=== PATIENT | female | born 1960 | race American Indian/Alaskan Native ===

== ENCOUNTER 2018-09-26 21:18 | Emergency (ER) | payer OTHER ==
--- NOTE | 2018-09-26 21:28 | Emergency Department Report ---
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 Due to findings the following was ordered: xr left hand ED Disposition for MSE Condition: Stable
--- NOTE | 2018-09-26 22:20 | XRay Report ---
PROCEDURE: XR HAND 3+V LT TECHNIQUE: PROCEDURE: LEFT HAND, 3 VIEWS TECHNIQUE: LEFT hand radiographs, AP, lateral, and oblique views. CPT 03784 HISTORY: left thumb pain/injury COMPARISONS: None . FINDINGS: Fracture (s) and/or Dislocation(s): None . Alignment: Normal . Joint space(s): Normal . Soft tissues: Normal . Bone mineralization: Normal . Foreign bodies: None . IMPRESSION: Normal Examination . This document is electronically signed by Girish Barnes MD., September 26 2018 10:18:41 PM ET
[2018-09-27] MEDS ORDERED: NORCO 5/325 PO STA (00:01)
--- NOTE | 2018-09-27 00:43 | Emergency Department Report ---
Upper Extremity - HPI Chief Complaint: Extremity Injury, Upper Stated Complaint: LEFT HAND INJURY Time Seen by Provider: 09/26/18 21:24 Upper Extremity: Left Hand Occurred When: Today Mechanism: Other (a 58-year-old female was trying to retrieve a debit card that belonged to her grandson that was on the couch and while doing so, rubs the top of her hand against the bottom of the couch, which was was within resulting in a dull throbbing pain and bruising to the top of her hand. She states that she jerked her hand out of the couch very quickly, which cause her thumb to her, but she is unsure as to what happened. She denies any direct trauma to her. The pain is now a dull and throbbing, and she is getting occasional tingling that radiates up the medial aspect of her left hand and forearm.) ED Review of Systems ROS: Stated complaint: LEFT HAND INJURY Other details as noted in HPI Constitutional: denies: chills, fever Eyes: denies: eye pain, eye discharge, vision change ENT: denies: ear pain, throat pain Respiratory: denies: cough, shortness of breath, wheezing Cardiovascular: denies: chest pain, palpitations Endocrine: no symptoms reported Gastrointestinal: denies: abdominal pain, nausea, diarrhea Genitourinary: denies: urgency, dysuria, discharge Musculoskeletal: denies: back pain, joint swelling, arthralgia Skin: denies: rash, lesions Neurological: denies: headache, weakness, paresthesias Psychiatric: denies: anxiety, depression Hematological/Lymphatic: denies: easy bleeding, easy bruising ED Past Medical Hx - Past Medical History Previous Medical History?: Yes Hx COPD: Yes Hx Tuberculosis: Yes Additional medical history: seasonal allergies, hepatitis B in 87 - Surgical History Past Surgical History?: Yes Additional Surgical History: hysterectomy, c-sec - Social History Smoking Status: Current Every Day Smoker Substance Use Type: None - Medications Home Medications: Home Medications Medication Instructions Recorded Confirmed Last Taken Type traMADol [Ultram] 50 mg PO Q6HR PRN #14 tablet 09/27/18 Unknown Rx Upper Extremity Exam - Exam General: Vital signs noted. No distress. Alert and acting appropriately. Head and Torso: No HEENT Abnormality, No Neck Tenderness, No Chest/Lungs Abnormality, No Abdominal Tenderness, No Back Tenderness Shoulder Exam: Yes Normal Range of Motion in Shoulder, No Shoulder Tenderness, No Clavicle Tenderness, No Shoulder Deformity, No AC Joint Tenderness Arm Exam: No Arm/Humerus Tenderness, No Arm Deformity Elbow: No Elbow Tenderness, No Normal Range of Motion in Elbow, No Elbow Deformity Forearm: No Forearm Tenderness, No Forearm Deformity, No Pain with Pronation, No Pain with Supination Wrist: Yes Normal ROM in Wrist, No Wrist Tenderness, No Wrist Deformity, No Snuffbox Tenderness, No Pain with Axial Thumb Compression Hand: Yes Hand Tenderness, Yes Normal ROM in Digit(s), No Hand Deformity, No Digit Tenderness, No Digit(s) Deformity, No Tendon Dysfunction CMS Exam: No Broken Skin, No Normal Distal Pulses, No Normal Capillary Refill, No Normal Distal Sensation Hand L/R Back: 1 - Area of bruising and tenderness with palpation. ED Course Vital Signs 09/26/18 21:26 Temperature 98.1 F Pulse Rate 65 Respiratory 18 Rate Blood Pressure 110/60 O2 Sat by Pulse 96 Oximetry ED Medical Decision Making - Medical Decision Making 8-year-old female with a couch versus hand injury was within normal x-rays and bruising to the top of her hand a long discussion with her about the natural progression of a bruise and the appropriate treatment course with icing and anti-inflammatory. Ms. Whyte was adamant that she does not want any anti- inflammatory scrotal home. She only wanted very strong narcotic to help her pain. She states it was hurting her and she wanted to make sure that the pain was 100% gone. I discussed with her about realistic goals for pain management and the appropriate of pain management therapy for this injury Critical care attestation.: If time is entered above; I have spent that time in minutes in the direct care of this critically ill patient, excluding procedure time. ED Disposition Clinical Impression: Contusion of left hand Disposition: - TO HOME OR SELFCARE Is pt being admited?: No Does the pt Need Aspirin: No Condition: Stable Instructions: Contusion in Adults (ED) Prescriptions: traMADol [Ultram] 50 mg PO Q6HR PRN #14 tablet PRN Reason: Pain Referrals: MARIELLA DUBOIS MD [Primary Care Provider] - 3-5 Days
[2018-09-27 01:20] VITALS: BP 108/63
== END 2018-09-27 01:18 | disposition home or self-care (01) ==
LOC: ED 21:18
DX: S60.222A Contusion of left hand, initial encounter (principal); J44.9 Chronic obstructive pulmonary disease, unspecified; F17.200 Nicotine dependence, unspecified, uncomplicated; Z86.19 Personal history of other infectious and parasitic diseases; Z90.710 Acquired absence of both cervix and uterus; W22.8XXA Striking against or struck by other objects, initial encounter; Y93.89 Activity, other specified; Y92.89 Other specified places as the place of occurrence of the external cause; Y99.8 Other external cause status
CPT/HCPCS: 99283

== ENCOUNTER 2019-03-16 18:44 | Emergency (ER) | payer SELFPAY ==
--- NOTE | 2019-03-16 19:00 | Event Note ---
ED Screening Note ED Screening Note: Pt presents with SOB that began this morning +cough with mucus production chest tightness +rhinorrhea no fever PMHx of COPD/emphysema pt is still smoking, 1/2 pack every two days no allergies to meds This initial assessment/diagnostic orders/clinical plan/treatment(s) is/are subject to change based on patients health status, clinical progression and re- assessment by fellow clinical providers in the ED. Further treatment and workup at subsequent clinical providers discretion. Patient/guardian urged not to elope from the ED as their condition may be serious if not clinically assessed and managed. Initial orders include: labs, CXR, EKG
--- NOTE | 2019-03-16 19:27 | XRay Report ---
CHEST 2 VIEWS INDICATION: SOB, cough. COMPARISON: None FINDINGS: Support devices: None. Heart: Within normal limits. Lungs/pleura: COPD changes in the lungs with calcified nodule in the right lung base measuring 2 cm l ikely representing a granuloma. Otherwise clear lungs. No pneumothorax. Additional findings: None. IMPRESSION: 1. No acute findings. Signer Name: Jamil Rosenbaum MD Signed: 03/16/2019 7:23 PM Workstation Name: [id number]
[2019-03-16 19:42] LABS: Basophils % (Auto) 0.8 % (0.0-1.8); Eosinophils # (Auto) 0.1 K/mm3 (0.0-0.4); Eosinophils % (Auto) 0.9 % (0.0-4.3); Hematocrit 41.7 % (30.3-42.9); Hemoglobin 14.2 gm/dl (10.1-14.3); Lymphocytes # (Auto) 2.3 K/mm3 (1.2-5.4); Lymphocytes % (Auto) 38.5 % (13.4-35.0); Mean Corpuscular HGB Conc 34 % (30-34); Mean Corpuscular Volume 93 fl (79-97); Monocytes # (Auto) 0.4 K/mm3 (0.0-0.8); Monocytes % (Auto) 7.3 % (0.0-7.3); Platelet Count 197 K/mm3 (140-440); Red Blood Count 4.47 M/mm3 (3.65-5.03); Red Cell Distribution Width 13.1 % (13.2-15.2)
[2019-03-16 20:05] LABS: BUN/Creatinine Ratio 8; Blood Urea Nitrogen 6 mg/dL (7-17); Calcium 9.3 mg/dL (8.4-10.2); Hemolysis Index 1
[2019-03-16] MEDS ORDERED: PROVENTIL IH ONE (22:07)
[2019-03-16] MEDS ORDERED: DUONEB *Not for PRN Use IH ONE (22:09)
[2019-03-16] MEDS ORDERED: DECADRON IM ONE (22:09)
--- NOTE | 2019-03-16 23:27 | Emergency Department Report ---
ED Shortness of Breath HPI - General Chief Complaint: Dyspnea/Respdistress Stated Complaint: ZEHRA/SHAKING Time Seen by Provider: 03/16/19 18:58 Source: patient Mode of arrival: Ambulatory Limitations: No Limitations - History of Present Illness Initial Comments: This is a 58-year-old female nontoxic, well nourished in appearance, no acute signs of distress presents to the ED with c/o of shortness of breath. Patient stated this morning she woke up feeling this. Patient has history of COPD and emphysema and symptoms are similar. Patient denies any chest pain, headache, stiff neck, no numbness, tingling, bowel pain, back pain. Patient denies any a llergies. Patient denies any recent travel or long car ride. MD Complaint: shortness of breath -: This morning Pain Scale: 0 Improves With: nothing Worsens With: nothing Known History Of: COPD, other (emphysema) Associated Symptoms: denies other symptoms Treatments Prior to Arrival: none - Related Data Previous Rx's Medication Instructions Recorded Last Taken Type traMADol [Ultram] 50 mg PO Q6HR PRN #14 tablet 09/27/18 Unknown Rx ALBUTEROL Inhaler (OR & NICU) 2 puff IH QID PRN #1 inhalation 03/16/19 Unknown Rx [ProAir HFA Inhaler] Prednisone [predniSONE 10 mg 10 mg PO .TAPER #1 tab.ds.pk 03/16/19 Unknown Rx (6-Day Pack, 21 Tabs)] Allergies Allergy/AdvReac Type Severity Reaction Status Date / Time No Known Allergies Allergy Verified 03/16/19 18:45 ED Review of Systems ROS: Stated complaint: ZEHRA/SHAKING Other details as noted in HPI Constitutional: denies: chills, fever Eyes: denies: eye pain, eye discharge, vision change ENT: denies: ear pain, throat pain Respiratory: shortness of breath, wheezing. denies: cough Cardiovascular: denies: chest pain, palpitations Endocrine: no symptoms reported Gastrointestinal: denies: abdominal pain, nausea, diarrhea Genitourinary: denies: urgency, dysuria, discharge Musculoskeletal: denies: back pain, joint swelling, arthralgia Skin: denies: rash, lesions Neurological: denies: headache, weakness, paresthesias Psychiatric: denies: anxiety, depression Hematological/Lymphatic: denies: easy bleeding, easy bruising ED Past Medical Hx - Past Medical History Hx COPD: Yes Hx Tuberculosis: Yes Additional medical history: seasonal allergies, hepatitis B in 87 - Surgical History Additional Surgical History: hysterectomy, c-sec - Social History Smoking Status: Current Every Day Smoker Substance Use Type: None - Medications Home Medications: Home Medications Medication Instructions Recorded Confirmed Last Taken Type traMADol [Ultram] 50 mg PO Q6HR PRN #14 tablet 09/27/18 Unknown Rx ALBUTEROL Inhaler (OR & NICU) 2 puff IH QID PRN #1 inhalation 03/16/19 Unknown Rx [ProAir HFA Inhaler] Prednisone [predniSONE 10 mg 10 mg PO .TAPER #1 tab.ds.pk 03/16/19 Unknown Rx (6-Day Pack, 21 Tabs)] ED Physical Exam - General Limitations: No Limitations General appearance: alert, in no apparent distress - Head Head exam: Present: atraumatic, normocephalic - Neck Neck exam: Present: normal inspection, full ROM. Absent: tenderness, meningismus, lymphadenopathy - Respiratory Respiratory exam: Present: normal lung sounds bilaterally, wheezes (upper and lower lobes). Absent: respiratory distress, rales, rhonchi, stridor, chest wall tenderness, accessory muscle use, decreased breath sounds, prolonged expiratory - Cardiovascular Cardiovascular Exam: Present: regular rate, normal rhythm, normal heart sounds. Absent: bradycardia, tachycardia, irregular rhythm, systolic murmur, diastolic murmur, rubs, gallop - Extremities Exam Extremities exam: Present: normal inspection, full ROM - Back Exam Back exam: Present: normal inspection, full ROM - Neurological Exam Neurological exam: Present: alert, oriented X3, normal gait - Psychiatric Psychiatric exam: Present: normal affect, normal mood - Skin Skin exam: Present: warm, dry, intact, normal color. Absent: rash ED Course Vital Signs 03/16/19 18:58 Temperature 97.9 F Pulse Rate 70 Respiratory 18 Rate Blood Pressure 120/68 O2 Sat by Pulse 97 Oximetry - Reevaluation(s) Reevaluation #1: 03/16/19 23:25 Patient is speaking in full sentences with no signs of distress noted. ED Medical Decision Making - Lab Data Result diagrams: 03/16/19 19:22 03/16/19 19:22 - Medical Decision Making This is a 58-year-old female that presents with SOB. Patient is stable and was examined by me. Labs unremarkable. EKG with no acute changes. Chest x-ray has been obtained and dictated by the radiologist within normal limits. Patient is notified of the x-ray report with no questions noted by the patient. Patient did receive DuoNeb and steroids in the ED which patient the symptoms has res olved and subsided. Posttreatment and there is no wheezing upon auscultation. Patient is discharged with albuterol and prednisone. Patient was referred to Follow-up with a primary care doctor in 3-5 days or if symptoms worsen and continue return to emergency room as soon as possible. At time of discharge, the patient does not seem toxic or ill in appearance. No acute signs of distress noted. Patient agrees to discharge treatment plan of care. No further questions noted by the patient. This chart is dictated with using [employer] Dictation Program Critical care attestation.: If time is entered above; I have spent that time in minutes in the direct care of this critically ill patient, excluding procedure time. ED Disposition Clinical Impression: Shortness of breath Disposition: DC-01 TO HOME OR SELFCARE Is pt being admited?: No Does the pt Need Aspirin: No Condition: Stable Instructions: Dyspnea (ED) Additional Instructions: Follow-up with a primary care doctor in 3-5 days or if symptoms worsen and continue return to emergency room as soon as possible. Prescriptions: Prednisone [predniSONE 10 mg (6-Day Pack, 21 Tabs)] 10 mg PO .TAPER #1 tab.ds.pk ALBUTEROL Inhaler (OR & NICU) [ProAir HFA Inhaler] 2 puff IH QID PRN #1 inhala tion PRN Reason: Shortness Of Breath [facility] - 3-5 Days PRIMARY MD EARNESTINE [Referring] - 3-5 Days RADHA SOLANO MD [Staff Physician] - 3-5 Days [facility] [Outside] - 3-5 Days [facility] [Outside] - 3-5 Days
[2019-03-16 23:35] VITALS: BP 110/57
== END 2019-03-16 23:34 | disposition home or self-care (01) ==
LOC: ED 18:44
DX: R06.02 Shortness of breath (principal); J44.9 Chronic obstructive pulmonary disease, unspecified; B19.10 Unspecified viral hepatitis B without hepatic coma; F17.200 Nicotine dependence, unspecified, uncomplicated; Z90.710 Acquired absence of both cervix and uterus; Z86.11 Personal history of tuberculosis; Z79.899 Other long term (current) drug therapy
CPT/HCPCS: 36415; 71046; 80048; 83880; 84484; 85025; 93005; 93010; 96372; 99284; J1100

== ENCOUNTER 2019-04-22 19:22 | Emergency (ER) | payer SELFPAY ==
--- NOTE | 2019-04-22 20:06 | Event Note ---
ED Screening Note Date of service: 04/22/19 Time: 20:03 ED Screening Note: This is a 58 y.o. F. that presents to the ER with productive cough and chest pain x 2 weeks. PMH of emphysema and COPD Recently recovered from URI. Current smoker This initial assessment/diagnostic orders/clinical plan/treatment(s) is/are subject to change based on patients health status, clinical progression and re- assessment by fellow clinical providers in the ED. Further treatment and workup at subsequent clinical providers discretion. Patient/guardian urged not to elope from the ED as their condition may be serious if not clinically assessed and managed. Initial orders include: CXR
--- NOTE | 2019-04-22 21:34 | XRay Report ---
CHEST 2 VIEWS INDICATION / CLINICAL INFORMATION: Cough and chest discomfort. Cold symptoms for 2 weeks with bronchitis. COMPARISON: 03/16/2019. FINDINGS: SUPPORT DEVICES: None. HEART / MEDIASTINUM: The heart size and pulmonary vasculature are normal. LUNGS / PLEURA: The lungs are hyperinflated. There is a 2 cm ovoid nodular opacity in the right lower lung which has not changed in size. The lesion is probably calcified, but I cannot be certain. No pn eumothorax. ADDITIONAL FINDINGS: No significant additional findings. IMPRESSION: 1. Emphysema without acute abnormality. 2. 2 cm nodular opacity in the right lower lung may represent a calcified granuloma, however I cannot be certain. CT of the chest may be helpful in further characterization. Signer Name: aPwan Donis MD Signed: 04/22/2019 9:29 PM Workstation Name: [id number]
--- NOTE | 2019-04-22 22:09 | Emergency Department Report ---
Minor Respiratory - HPI Chief Complaint: Upper Respiratory Infection Stated Complaint: BRONCITIS Time Seen by Provider: 04/22/19 20:03 Duration: 3 Days Minor Respiratory: Yes Able to Tolerate Fluids, Yes Cough, Yes Chest Pain, Yes Fever, No Rhinorrhea, No Sore Throat, No Ear Pain, No Sick Contacts, No Hemoptysis, No Shortness of Breath Other History: 58-year-old female presents to the emergency room for cough she's had 2-3 days. Patient reports she has chest pain with cough. She reports she has COPD and emphysema and uses Symbicort. Patient admits that she is still smoking cigarettes. Patient reports she's taken NyQuil. Patient reports that she's had no fevers no change in sputum color. Patient does admit to have been a cold a few weeks ago. ED Review of Systems ROS: Stated complaint: BRONCITIS Other details as noted in HPI ED Past Medical Hx - Past Medical History Previous Medical History?: Yes Hx COPD: Yes Hx Tuberculosis: Yes Additional medical history: seasonal allergies, hepatitis B in 87 - Surgical History Past Surgical History?: Yes Additional Surgical History: hysterectomy, c-sec - Social History Smoking Status: Current Every Day Smoker Substance Use Type: None - Medications Home Medications: Home Medications Medication Instructions Recorded Confirmed Last Taken Type traMADol [Ultram] 50 mg PO Q6HR PRN #14 tablet 09/27/18 Unknown Rx ALBUTEROL Inhaler (OR & NICU) 2 puff IH QID PRN #1 inhalation 04/22/19 Unknown Rx [ProAir HFA Inhaler] Prednisone [predniSONE 10 mg 10 mg PO .TAPER #1 tab.ds.pk 04/22/19 Unknown Rx (6-Day Pack, 21 Tabs)] Minor Respiratory Exam - Exam General: Vital signs noted. No distress. Alert and acting appropriately. HEENT: Yes Moist Mucous Membranes, No Pharyngeal Erythema, No Pharyngeal Exudates, No Rhinorrhea, No Conjuctival Injection, No Frontal Tenderness, No Maxillary Tenderness Ear: Neither TM Bulge, Neither TM Erythema, Neither EAC Pain, Neither EAC Discharge Neck: Yes Supple, No Adenopathy Lungs: Yes Good Air Exchange, No Wheezes, No Ronchi, No Stridor, No Cough, No Labored Respirations, No Retractions, No Use of Accessory Muscles, No Other Abnormal Lung Sounds Heart: Yes Regular, No Murmur Abdomen: Yes Normal Bowel Sounds, No Tenderness, No Peritoneal Signs Skin: No Rash, No Edema Neurologic: Alert and oriented, no deficits. Musculoskeletal: Unremarkable. ED Course Vital Signs 04/22/19 19:29 Temperature 98.1 F Pulse Rate 70 Respiratory 16 Rate Blood Pressure 107/66 O2 Sat by Pulse 94 Oximetry ED Medical Decision Making - Radiology Data Radiology results: report reviewed Patient: MIRIAM BRIGGS MR#: [id number] : 1960 Acct:[id number] Age/Sex: 58 / F ADM Date: 04/22/19 Loc: ED Attending Dr: Ordering Physician: RODRIGUE DUNN Date of Service: 04/22/19 Procedure(s): XR chest routine 2V Accession Number(s): [id number] cc: RODRIGUE DUNN Fluoro Time In Minutes: CHEST 2 VIEWS INDICATION / CLINICAL INFORMATION: Cough and chest discomfort. Cold symptoms for 2 weeks with bronchitis. COMPARISON: 03/16/2019. FINDINGS: SUPPORT DEVICES: None. HEART / MEDIASTINUM: The heart size and pulmonary vasculature are normal. LUNGS / PLEURA: The lungs are hyperinflated. There is a 2 cm ovoid nodular opacity in the right lower lung which has not changed in size. The lesion is probably calcified, but I cannot be certain. No pneumothorax. ADDITIONAL FINDINGS: No significant additional findings. IMPRESSION: 1. Emphysema without acute abnormality. 2. 2 cm nodular opacity in the right lower lung may represent a calcified granuloma, however I cannot be certain. CT of the chest may be helpful in further characterization. Signer Name: Pawan Donis MD Signed: 04/22/2019 9:29 PM Workstation Name: [id number] Transcribed By: RT Dictated By: Pawan Donis MD Electronically Authenticated By: Pawan Donis MD Signed Date/Time: 04/22/192128 DD/ 26 TD/TT: - Medical Decision Making 58-year-old female presents to the emergency room for cough she's had 2-3 days. Patient reports she has chest pain with cough. She reports she has COPD and emphysema and uses Symbicort. Patient admits that she is still smoking cigarettes. Patient reports she's taken NyQuil. Patient reports that she's had no fevers no change in sputum color. Patient does admit to have been a cold a few weeks ago. Chest x-ray shows emphysema no acute abnormalities. Right lower lung nodule 2 cm. Patient be given a prescription for albuterol and prednisone and referred to critical care transport nurse. Critical care attestation.: If time is entered above; I have spent that time in minutes in the direct care of this critically ill patient, excluding procedure time. ED Disposition Clinical Impression: Chronic cough, Nodule of lower lobe of right lung Emphysema of lung Qualifiers: Emphysema type: unspecified Qualified Code(s): J43.9 - Emphysema, unspecified Disposition: TO HOME OR SELFCARE Is pt being admited?: No Does the pt Need Aspirin: No Condition: Stable Instructions: Chronic Obstructive Pulmonary Disease (ED) Prescriptions: Prednisone [predniSONE 10 mg (6-Day Pack, 21 Tabs)] 10 mg PO .TAPER #1 tab.ds.pk ALBUTEROL Inhaler (OR & NICU) [ProAir HFA Inhaler] 2 puff IH QID PRN #1 inhalation PRN Reason: Shortness Of Breath Referrals: MEGAN DE LA O MD [Staff Physician] - 3-5 Days [facility] [Outside] - 3-5 Days
[2019-04-22 22:34] VITALS: BP 145/98
== END 2019-04-22 22:33 | disposition home or self-care (01) ==
LOC: ED 19:22
DX: J43.9 Emphysema, unspecified (principal); R91.1 Solitary pulmonary nodule; F17.200 Nicotine dependence, unspecified, uncomplicated; Z98.890 Other specified postprocedural states
CPT/HCPCS: 71046

== ENCOUNTER 2020-10-31 16:40 | Emergency (ER) | payer SELFPAY ==
[2020-10-31] MEDS ORDERED: IPRATROPIUM 0.02% NEBU 2.5 ML IH ONE ×2 (18:37→23:32)
[2020-10-31] MEDS ORDERED: ALBUTEROL 2.5 MG/3 ML NEBU IH ONE ×2 (18:37→23:31)
[2020-10-31] MEDS ORDERED: methylPREDNISolone Sod Succinate 125 MG/2 ML INJ IV ONE (18:38)
--- NOTE | 2020-10-31 18:40 | Event Note ---
ED Screening Note Date of service: 10/31/20 Time: 18:39 ED Screening Note: 60-year-old female patient with history of COPD and tobacco use presents to the emergency department with complaints of chest tightness, productive cough, wheezing, and shortness of breath for 8 days. States she is not currently on steroids or antibiotics. States she has never required hospitalization for her COPD. No known sick contacts. No recent travel. General: Awake, appropriately interactive, no acute distress. Neck: Supple. Full range of motion intact. Cardiovascular: Normal peripheral perfusion. Pulmonary: Diffuse inspiratory/expiratory wheezing bilaterally with scattered rhonchi throughout. No respiratory distress. Patient is speaking normally without use of accessory muscles. Skin: No apparent rashes or lesions. Neurological: No facial asymmetry. Speech is clear. Follows commands. Patient is alert and oriented. Musculoskeletal: Moves all four extremities spontaneously with normal range of motion. Psych: Cooperative. Appropriate mood and affect. I have greeted and performed a focused rapid initial assessment of this patient. A comprehensive ED assessment and evaluation of the patient, analysis of all test results, and completion of the medical decision-making process will be cond ucted by additional ED providers. This initial assessment/diagnostic orders/clinical plan/treatment(s) is/are subject to change based on patients health status, clinical progression and re-assessment. Further treatment and workup at subsequent clinical provider's discretion. Patient/guardian urged not to elope from the ED as their condition may be serious if not clinically assessed and managed.
--- NOTE | 2020-10-31 19:14 | XRay Report ---
CHEST 2 VIEWS INDICATION / CLINICAL INFORMATION: MAIN. Cough and shortness of breath COMPARISON: 04/22/2019 FINDINGS: SUPPORT DEVICES: None. HEART / MEDIASTINUM: No significant abnormality. LUNGS / PLEURA: Moderate COPD. No significant pulmonary or pleural abnormality. No pneumothorax. ADDITIONAL FINDINGS: No significant additional findings. IMPRESSION: 1. No acute findings. Signer Name: Jefry Marcos MD Signed: 10/31/2020 7:09 PM Workstation Name: [id number]
[2020-11-01] MEDS ORDERED: IPRATROPIUM 0.02% NEBU 2.5 ML IH ONE (01:33)
[2020-11-01] MEDS ORDERED: ALBUTEROL 2.5 MG/3 ML NEBU IH ONE (01:33)
[2020-11-01] MEDS ORDERED: methylPREDNISolone Sod Succinate 125 MG/2 ML INJ IM ONE (01:33)
[2020-11-01] MEDS ORDERED: KETOROLAC 60 MG/2 ML INJ IM ONE (01:34)
--- NOTE | 2020-11-01 01:38 | Emergency Department Report ---
HPI - General Chief Complaint: Dyspnea/Respdistress Time Seen by Provider: 11/01/20 01:26 - HPI HPI: Room 2 The patient is a 60-year-old female present with a chief complaint of "bronchitis." The patient states for the past 8 days she has had a cough p roductive of white sputum. Patient states her treatment coughing has caused soreness in her chest. Patient admits to shortness of breath denies history of fever. Patient denies known contact with Covid positive patients. ED Past Medical Hx - Past Medical History Hx COPD: Yes (No home O2) Hx Tuberculosis: Yes Additional medical history: seasonal allergies, hepatitis B in 87 - Surgical History Additional Surgical History: hysterectomy, c-sec - Family History Family history: no significant - Social History Smoking Status: Current Every Day Smoker (1/2 pack/day) Substance Use Type: None (Denies illicit drug) - Medications Home Medications: Home Medications Medication Instructions Recorded Confirmed Last Taken Type traMADoL [Ultram] 50 mg PO Q6HR PRN #14 tablet 09/27/18 Unknown Rx Albuterol Mdi (or & Nicu Only) 2 puff IH QID PRN #1 inhalation 04/22/19 Unknown Rx [ProAir HFA Inhaler] Prednisone [predniSONE 10 mg 10 mg PO .TAPER #1 tab.ds.pk 04/22/19 Unknown Rx (6-Day Pack, 21 Tabs)] Albuterol Mdi (or & Nicu Only) 2 puff IH QID PRN #8.5 gram 11/01/20 Unknown Rx [ProAir HFA Inhaler] Azithromycin [Zithromax Z-LANDON] 0 mg PO DAILY #6 tab 11/01/20 Unknown Rx Cyclobenzaprine [Flexeril] 10 mg PO TID PRN #10 tablet 11/01/20 Unknown Rx Ibuprofen [Motrin 800 MG tab] 800 mg PO Q8HR PRN #20 tablet 11/01/20 Unknown Rx Prednisone [predniSONE 10 mg 10 mg PO .TAPER #1 tab.ds.pk 11/01/20 Unknown Rx (6-Day Pack, 21 Tabs)] ED Review of Systems ROS: Stated complaint: ZEHRA, CHEST PAIN, SORE THROAT Other details as noted in HPI Constitutional: denies: fever Eyes: denies: eye pain ENT: denies: throat pain Respiratory: cough, shortness of breath Endocrine: no symptoms reported Gastrointestinal: denies: abdominal pain Genitourinary: denies: dysuria Musculoskeletal: myalgia Neurological: denies: headache Physical Exam - Physical Exam Vital Signs: Vital Signs 10/31/20 10/31/20 18:30 23:42 Temperature 98.1 F Pulse Rate 70 Pulse Rate [ 88 Bilateral] Respiratory 20 Rate Respiratory 22 Rate [Bilateral ] Blood Pressure 109/76 O2 Sat by Pulse 96 Oximetry Physical Exam: GENERAL: The patient is well-developed well-nourished female lying on stretcher not appearing to be in acute distress. [] HEENT: Normocephalic. Atraumatic. Extraocular motions are intact. Patient has moist mucous membranes. NECK: Supple. Trachea midline CHEST/LUNGS: Wheezing and occasional rhonchi. There is no respiratory distress noted. HEART/CARDIOVASCULAR: Regular. There is no tachycardia. There is no gallop rub or murmur. ABDOMEN: Abdomen is soft, nontender. Patient has normal bowel sounds. There is no abdominal distention. SKIN: There is no rash. There is no edema. There is no diaphoresis. NEURO: The patient is awake, alert, and oriented. The patient is cooperative. The patient has no focal neurologic deficits. The patient has normal speech MUSCULOSKELETAL: There is no evidence of acute injury. ED Course Vital Signs 10/31/20 10/31/20 18:30 23:42 Temperature 98.1 F Pulse Rate 70 Pulse Rate [ 88 Bilateral] Respiratory 20 Rate Respiratory 22 Rate [Bilateral ] Blood Pressure 109/76 O2 Sat by Pulse 96 Oximetry ED Medical Decision Making - Lab Data Result diagrams: 11/01/20 01:40 11/01/20 01:40 Laboratory Tests 11/01/20 11/01/20 01:40 01:40 WBC 9.1 RBC 4.62 Hgb 14.9 H Hct 42.9 MCV 93 MCH 32 MCHC 35 H RDW 12.8 L Plt Count 220 Lymph % (Auto) 35.4 H Harlan % (Auto) 7.6 H Eos % (Auto) 1.1 Baso % (Auto) 0.4 Lymph # (Auto) 3.2 Harlan # (Auto) 0.7 Eos # (Auto) 0.1 Baso # (Auto) 0.0 Seg Neutrophils % 55.5 Seg Neutrophils # 5.1 Sodium 139 Potassium 3.2 L Chloride 101.1 Carbon Dioxide 27 Anion Gap 14 BUN 7 Creatinine 0.8 Estimated GFR > 60 BUN/Creatinine Ratio 9 Glucose 116 H Calcium 9.0 Troponin T < 0.010 - EKG Data -: EKG Interpreted by Me EKG shows normal: sinus rhythm Rate: normal - EKG Data When compared to previous EKG there are: previous EKG unavailable Interpretation: other (No ischemic changes seen) - Radiology Data Radiology results: report reviewed (Chest x-ray), image reviewed (Chest x-ray) interpreted by me: Chest x-ray-no focal infiltrates, no pneumothorax. No foreign body seen [facility] [address] [place] [address] XRa y Report Signed Patient: MIRIAM BRIGGS MR#: [id number] : 1960 Acct:[id number] Age/Sex: 60 / F ADM Date: 10/31/20 Loc: ED Attending Dr: Ordering Physician: WENDIE HOPKINS Date of Service: 10/31/20 Procedure(s): XR chest routine 2V Accession Number(s): [id number] cc: WENDIE HOPKINS Fluoro Time In Minutes: CHEST 2 VIEWS INDICATION / CLINICAL INFORMATION: MAIN. Cough and shortness of breath COMPARISON: 04/22/2019 FINDINGS: SUPPORT DEVICES: None. HEART / MEDIASTINUM: No significant abnormality. LUNGS / PLEURA: Moderate COPD. No significant pulmonary or pleural abnormality. No pneumothorax. ADDITIONAL FINDINGS: No significant additional findings. IMPRESSION: 1. No acute findings. Signer Name: Jefry Marcos MD Signed: 10/31/2020 7:09 PM Workstation Name: [id number] Transcribed By: TL Dictated By: Jefry Marcos MD Electronically Authenticated By: Jefry Marcos MD Signed Date/Time: 10/31/201908 DD/ 06 TD/TT: Print Cancel - Differential Diagnosis COPD exacerbation, bronchitis, pneumonia, ACS, Critical care attestation.: If time is entered above; I have spent that time in minutes in the direct care of this critically ill patient, excluding procedure time. ED Disposition Clinical Impression: COPD exacerbation, Acute bronchitis, Chest wall pain Disposition: DC- TO HOME OR SELFCARE Is pt being admited?: No Does the pt Need Aspirin: No Condition: Stable Instructions: Nonspecific Chest Pain, Adult, Acute Bronchitis (ED), Chronic Obstructive Pulmonary Disease (ED) Additional Instructions: Return to the emergency department should you develop worsening symptoms, inab ility to tolerate food or liquids, high fever or any other concerns Prescriptions: Cyclobenzaprine [Flexeril] 10 mg PO TID PRN #10 tablet PRN Reason: Muscle Spasm Ibuprofen [Motrin 800 MG tab] 800 mg PO Q8HR PRN #20 tablet PRN Reason: Pain, Moderate (4-6) Prednisone [predniSONE 10 mg (6-Day Pack, 21 Tabs)] 10 mg PO .TAPER #1 tab.ds.pk Albuterol Mdi (or & Nicu Only) [ProAir HFA Inhaler] 2 puff IH QID PRN #8.5 gram PRN Reason: Shortness Of Breath Azithromycin [Zithromax Z-LANDON] 0 mg PO DAILY #6 tab Referrals: PRIMARY CARE, [Primary Care Provider] - 3-5 Days Time of Disposition: 02:43
[2020-11-01 01:53] LABS: Basophils % (Auto) 0.4 % (0.0-1.8); Eosinophils # (Auto) 0.1 K/mm3 (0.0-0.4); Eosinophils % (Auto) 1.1 % (0.0-4.3); Hematocrit 42.9 % (30.3-42.9); Hemoglobin 14.9 gm/dl (10.1-14.3); Lymphocytes # (Auto) 3.2 K/mm3 (1.2-5.4); Lymphocytes % (Auto) 35.4 % (13.4-35.0); Mean Corpuscular HGB Conc 35 % (30-34); Mean Corpuscular Volume 93 fl (79-97); Monocytes # (Auto) 0.7 K/mm3 (0.0-0.8); Monocytes % (Auto) 7.6 % (0.0-7.3); Platelet Count 220 K/mm3 (140-440); Red Blood Count 4.62 M/mm3 (3.65-5.03); Red Cell Distribution Width 12.8 % (13.2-15.2)
[2020-11-01 02:11] LABS: BUN/Creatinine Ratio 9; Blood Urea Nitrogen 7 mg/dL (7-17); Hemolysis Index 2
[2020-11-01] MEDS ORDERED: POTASSIUM CHLORIDE ER 20 MEQ TAB PO ONE (02:36)
[2020-11-01 02:50] VITALS: BP 102/64
--- NOTE | 2020-11-02 11:21 | Electrocardiograph Report ---
[facility] Test Date: 2020-10-31 Test Time: 18:40:41 Pat Name: MIRIAM BRIGGS Department: Room: Gender: F Supervisor Process Testing: : 1960 Requested By: KATIE LOUIS Order Number: [id number] Reading MD: Vance Kendrick Measurements Intervals [place] Rate: 75 P: 81 GA: 183 QRS: 76 QRSD: 89 T: 60 QT: 371 QTc: 416 Interpretive Statements Sinus rhythm Probable left atrial enlargement No previous ECG available for comparison Electronically Signed On 11-02-2020 11:21:13 EDT by Vance Kendrick
== END 2020-11-01 03:14 | disposition home or self-care (01) ==
LOC: ED 16:40
DX: J44.1 Chronic obstructive pulmonary disease with (acute) exacerbation (principal); J20.9 Acute bronchitis, unspecified; R07.89 Other chest pain; F17.200 Nicotine dependence, unspecified, uncomplicated; K21.9 Gastro-esophageal reflux disease without esophagitis; Z90.710 Acquired absence of both cervix and uterus; Z79.899 Other long term (current) drug therapy; Z98.890 Other specified postprocedural states
CPT/HCPCS: 36415; 71046; 80048; 84484; 85025; 93005; 94640; 94644; 96372; 99284; J1885; J2930